=== PATIENT | female | born 1970 | race Caucasian/White ===

== ENCOUNTER 2019-06-04 14:59 | Inpatient (IN) ==
[2019-06-04] MEDS ORDERED: PULMICORT INH ONE (15:25)
[2019-06-04] MEDS ORDERED: DUONEB (A & A) INH ONE ×2 (15:25→18:12)
[2019-06-04] MEDS ORDERED: SOLU-MEDROL IV ONE (15:25)
[2019-06-04 15:51] LABS: BASO# 0.04 X1000 (0.0-0.2); BASO% 0.4 % (0.0-0.8); EOS# 0.25 X1000 (0.0-0.7); EOS% 2.3 % (0.0-10.0); HEMOGLOBIN 16.2 g/dL (12.0-16.0); IMM GRAN# 0.03 X1000 (0.0-0.04); IMM GRAN% 0.3 % (0.0-0.5); LYMPH# 1.88 X1000 (1.2-3.4); MCH 27.6 PG (27-31); MCV 92.2 FL (81-99); MONO# 0.83 X1000 (0.11-0.59); MONO% 7.5 % (1.7-9.3); NEUT# 8.06 X1000 (1.4-6.5); NEUT% 72.5 % (42.2-75.2); PLT 308 X1000 (130-400); RBC 5.86 XMIL (4.2-5.4); RDW 14.9 % (11.5-14.5); WBC 11.09 X1000 (4.8-10.8)
--- NOTE | 2019-06-04 15:51 | Diag Imaging Result Doc PS360 ---
CHEST-1 VIEW - 06/04/2019 INDICATION: sepsis prot COMPARISON: 05/12/2018 FINDINGS: There is some mild linear atelectasis in both midlungs. No substantial infiltrates. Heart size is top normal. No pneumothorax or pleural effusion. IMPRESSION: Bilateral linear atelectasis but no acute disease. Electronically signed by Víctor Diaz 06/04/2019 3:49 PM
--- NOTE | 2019-06-04 15:55 | Diag Imaging Result Doc PS360 ---
TOE(S)-LEFT - 06/04/2019 INDICATION: left 5th digit pain w/o injury TECHNIQUE: Three views COMPARISON: None FINDINGS: Bones are intact and normally aligned. Joint spaces and soft tissues are clear. IMPRESSION: Negative exam. Electronically signed by Víctor Diaz 06/04/2019 3:53 PM
[2019-06-04 16:12] LABS: PTT 31.6 Seconds (22.3-41.8)
[2019-06-04 16:23] LABS: AGAP 8; ALB/GLOB RATIO 1.1; ALBUMIN 4.2 g/dL (3.5-5.0); ALKALINE PHOSPHATASE 98 U/L (32-104); BUN 9 mg/dL (8-22); CALCIUM 9.4 mg/dL (8.8-10.2); CHLORIDE 97 mmol/L (98-107); CK PROFILE 49 U/L (24-173); COSMO 292; CREATININE 0.9 mg/dL (0.5-0.9); ESTIMATED GFR > 60; GLUCOSE 143 mg/dL (70-104); GOT 14 U/L (10-30); GPT 10 U/L (10-36); POTASSIUM 3.7 mmol/L (3.5-5.1); SODIUM 146 mmol/L (136-145); TCO2 41 mmol/L (25-35)
[2019-06-04] MEDS ORDERED: ZITHROMAX 500 MG/NS 500 MG/250 ML IVPB IV ONE (16:30)
--- NOTE | 2019-06-04 16:36 | PROVIDER DOCUMENTATION ---
This chart was entered by Lucero Díaz Scribe, acting as scribe for Kathy Dudley MD. HPI-Respiratory General - General Chief Complaint: SEPSIS ALERT - D Stated Complaint: SOB/COLD SX Time Seen by Provider: 06/04/19 15:15 Source: patient, family (daughter) Allergies/Adverse Reactions: Patient Allergies Allergy/AdvReac Type Severity Reaction Status Date / Time egg Allergy HIVES Verified 06/04/19 17:26 levofloxacin [From Levaquin] Allergy HIVES Verified 06/04/19 17:26 Sulfa (Sulfonamide Allergy HIVES Verified 06/04/19 17:26 Antibiotics) Home Medications: Home Medication List Medication Instructions Recorded Confirmed Last Taken Type LISINOpril [Prinivil] 40 mg PO DAILY #60 tablet 07/26/15 06/04/19 05/11/18 Rx Hydrocodone/Acetaminophen [[place] 1 each PO BID 05/11/18 06/04/19 05/11/18 History 7.5-325 Tablet] Albuterol 2.5MG/Ipratrop 0.5MG 3 ml INH Q4H PRN PRN #60 neb 05/13/18 06/04/19 Unknown Rx [Duoneb (A & A)] Furosemide [Lasix] 40 mg PO PRN PRN 06/04/19 06/04/19 Unknown History Potassium Chloride E.r. [Klor-Con] 40 meq PO PRN PRN 06/04/19 06/04/19 Unknown History - History of Present Illness-Resp Nature of Presenting Problem: pt is a 49 yowf brought to the ED by EMS with daughter at bedside for c/o SOB, cough w/ phlegm and weakness. pt with hx of COPD and o2 dependent of 2L at home but has increased to 3-4 L due to her recent illness. Has positive sick contacts with grandchildren and did not get the flu shot this year. Pt states she puts off going to the doctor or hospital. Her last time for hospitalization for COPD exacerbation was 1 year ago. She continues to smoke, has tried breathing tx at home and was given breathing tx by EMS. She also has c/o of left 5th digit toe pain without injury. She is speaking in short sentences and is on o2 on exam. Quality of Pain: reports: tightness Severity in ED: reports: mild Onset/Duration: reports: 1 week ago Timing: reports: still present, getting worse Exposure: reports: illness exposure (grandchildren have been sick) Cough Quality/Degree: reports: productive cough (yellow phlegm) Current Respiratory Medication Therapy: Initiated see nurses note Modifying Factors: improves with: oxygen. worse with: coughing Associated Symptoms: reports: chest pain/soreness (tightness), cough, hurts to breathe, shortness of breath Similar Symptoms Previously?: Yes Review of Systems - Adult - REVIEW OF SYSTEMS - ADULT Constitutional: reports: see HPI. denies: fever Eyes: reports: no symptoms reported Ears, Nose, Mouth & Throat: reports: no symptoms reported Cardiovascular: reports: see HPI, chest pain Respiratory: reports: see HPI, cough, shortness of breath Gastrointestinal: reports: see HPI. denies: nausea, vomiting Genitourinary: reports: no symptoms reported Musculoskeletal: reports: no symptoms reported Integumentary: reports: no symptoms reported Neurological: reports: no symptoms reported Psychiatric: reports: no symptoms reported Endocrine: reports: no symptoms reported Hematologic/Lymphatic: reports: no symptoms reported Allergic/Immunologic: reports: no symptoms reported All Other Systems: Reviewed and Negative Past History - Adult - PAST MEDICAL HISTORY-ADULT Review of Records: reports: Old Records Reviewed, Medications Reviewed, Social history reviewed & non-contributory. Major Childhood Illnesses: reports: denies history Cardiovascular: reports: CAD, HTN, SC Respiratory: reports: asthma, COPD Gastrointestinal: reports: GERD Obstetrical/Gynecological: reports: denies history Genitourinary: reports: denies history Musculoskeletal: reports: chronic pain Neurological: reports: denies history Psychiatric: reports: depression Endocrine/Immune: reports: denies history Other Conditions: reports: denies history - PRIOR SURGERIES/PROCEDURES Surgical/Procedure History: reports: BTL, other (left ear) - IMMUNIZATION STATUS Childhood Immunizations: See Nurse Assessment Flu Vaccine: See Nurse Assessment - FAMILY HISTORY Family History: reviewed, not pertinent - SOCIAL HISTORY Smoking: cigarettes, less than 1 pack/day Provider spent 3-5 mins advising pt. on dangers of tobacco.: Discussed manners to quit use, and f/u contacts for add'l counseling. Substance Use: denies Living Situation: family (daughter) Physical Exam-General - PHYSICAL EXAM-ADULT Initial Vital Signs Reviewed: Yes (Resp 108, O2 92 ) - CONSTITUTIONAL General Appearance: alert, mild distress, obese - EYES Eyes: PERRL/EOMI, pink conjunctivae - HEAD, EARS, NOSE, MOUTH & THROAT HENMT: moist mucous membranes - NECK Neck: non-tender, full range of motion - RESPIRATORY Respiratory: respiratory distress (mild), decreased breath sounds, wheezing. negative: crackles, rales, rhonchi - CARDIOVASCULAR Cardiovascular: tachycardia, other (trace edema to LE b/l) - GASTROINTESTINAL (ABDOMEN) Abdominal Exam: non tender, soft - MUSCULOSKELETAL Back Exam: no CVA tenderness, no vertebral tenderness Extremity: normal gait, tenderness (right arm), other (left digit abrasion, tender to touch) - SKIN Integumentary: normal color, normal turgor, warm/dry - NEUROLOGIC Neurologic: grossly normal - PSYCHIATRIC Psych/Mental Status: normal mood/affect, normal thought content, normal thought process, oriented x 3 Progress - PLAN OF CARE/RESULTS Progress/Plan/Lab Results: Vital Signs - 8 hr 06/04/19 15:07 06/04/19 15:14 06/04/19 15:41 Temperature 98.5 F Pulse Rate 108 H 105 H 108 H Respiratory Rate 22 23 22 Blood Pressure 167/122 167/122 O2 Sat by Pulse Oximetry 92 L 92 L 92 L 06/04/19 17:34 06/04/19 18:03 06/04/19 18:33 Temperature Pulse Rate 104 H 97 H 102 H Respiratory Rate 23 23 18 Blood Pressure 151/111 131/74 132/100 O2 Sat by Pulse Oximetry 92 L 91 L 94 L 06/04/19 19:03 06/04/19 19:18 06/04/19 19:33 Temperature Pulse Rate 93 H 108 H 98 H Respiratory Rate 23 22 23 Blood Pressure 164/87 167/119 O2 Sat by Pulse Oximetry 91 L 95 06/04/19 20:03 Temperature Pulse Rate 102 H Respiratory Rate 21 Blood Pressure 154/86 O2 Sat by Pulse Oximetry 92 L 06/04/19 15:39 Influenza Screen - Final Nasopharyngeal Laboratory Results - last 24 hr 06/04/19 06/04/19 06/04/19 15:24 15:24 15:24 WBC 11.09 H RBC 5.86 H Hgb 16.2 H Hct 54.0 H MCV 92.2 MCH 27.6 MCHC 30.0 L RDW Std Deviation 14.9 H Plt Count 308 MPV 10.0 Immature Gran % (Auto) 0.3 Neut % (Auto) 72.5 Lymph % (Auto) 17.0 L [place] % (Auto) 7.5 Eos % (Auto) 2.3 Baso % (Auto) 0.4 Immature Gran # (Auto) 0.03 Neut # (Auto) 8.06 H Lymph # (Auto) 1.88 [place] # (Auto) 0.83 H Eos # (Auto) 0.25 Baso # (Auto) 0.04 PT INR PTT (Actin FS) Sodium 146 H Potassium 3.7 Chloride 97 L Carbon Dioxide 41 H Anion Gap 8 BUN 9 Creatinine 0.9 Estimated GFR/1.73 m2 > 60 BUN/Creatinine Ratio 10 Glucose 143 H Calculated Osmolality 292 Calcium 9.4 Total Bilirubin 0.30 AST 14 ALT 10 Alkaline Phosphatase 98 Creatine Kinase 49 Troponin T Total Protein 8.0 Albumin 4.2 Globulin 3.8 Albumin/Globulin Ratio 1.1 Plasma Lactate 1.1 Urine Source Urine Color Urine Turbidity Urine pH Ur Specific [place] Urine Protein Ur Glucose (Stick) Ur Ketones (Stick) Urine Blood Urine Nitrite Urine Bilirubin Urobilinogen Dipstick Urine Leukocytes Urine WBC (Auto) Urine RBC (Auto) U Epithel Cells (Auto) Urine Bacteria (Auto) 06/04/19 06/04/19 06/04/19 15:24 15:24 16:55 WBC RBC Hgb Hct MCV MCH MCHC RDW Std Deviation Plt Count MPV Immature Gran % (Auto) Neut % (Auto) Lymph % (Auto) [place] % (Auto) Eos % (Auto) Baso % (Auto) Immature Gran # (Auto) Neut # (Auto) Lymph # (Auto) [place] # (Auto) Eos # (Auto) Baso # (Auto) PT 13.4 INR 1.01 PTT (Actin FS) 31.6 Sodium Potassium Chloride Carbon Dioxide Anion Gap BUN Creatinine Estimated GFR/1.73 m2 BUN/Creatinine Ratio Glucose Calculated Osmolality Calcium Total Bilirubin AST ALT Alkaline Phosphatase Creatine Kinase Troponin T < 0.010 Total Protein Albumin Globulin Albumin/Globulin Ratio Plasma Lactate Urine Source CLEAN CATCH Urine Color YELLOW Urine Turbidity CLEAR Urine pH 6.0 Ur Specific [place] 1.019 Urine Protein TRACE A Ur Glucose (Stick) NEGATIVE Ur Ketones (Stick) NEGATIVE Urine Blood NEGATIVE Urine Nitrite NEGATIVE Urine Bilirubin NEGATIVE Urobilinogen Dipstick NORMAL Urine Leukocytes NEGATIVE Urine WBC (Auto) <10 Urine RBC (Auto) <10 U Epithel Cells (Auto) <10 Urine Bacteria (Auto) NEGATIVE Orders Category Date Time Status Cardiac Monitoring DIRECTED Care 06/04/19 15:15 Active IV Insertion ORDERED Care 06/04/19 15:15 Completed Notify MD of + Sepsis Screen NOW Care 06/04/19 15:15 Completed Notify Physician As Ordered Care 06/04/19 15:15 Completed Regular Diet Diet 06/04/19 18:56 Active CHEST-1 VIEW [RAD] Stat Exams 06/04/19 15:15 Completed TOE(S)-LEFT [RAD] Stat Exams 06/04/19 15:26 Completed BLOOD CULTURE [BLDCUL] Stat Lab 06/04/19 15:34 Results CBC WITH DIFF [HEME] Stat Lab 06/04/19 15:24 Completed CK PROFILE [SP CHEM] Stat Lab 06/04/19 15:24 Completed COMPREHENSIVE METABOLIC PANEL [CHEM] Stat Lab 06/04/19 15:24 Completed Flu Swab [INFLUENZA SCREEN A/B] Stat Lab 06/04/19 15:39 Completed LACTATE, PLASMA [CHEM] Q3H Lab 06/04/19 15:24 Completed PROTIME WITH INR [COAG] Stat Lab 06/04/19 15:24 Completed PTT [COAG] Stat Lab 06/04/19 15:24 Completed TROPONIN T Stat Lab 06/04/19 15:24 Completed URINALYSIS W/POSS RFLX CULT [URINALYSIS] Stat Lab 06/04/19 16:55 Completed Albuterol 2.5MG/Ipratrop 0.5MG [Duoneb (A & A)] Med 06/04/19 15:25 Discontinued 9 ml INH NOW ONE Albuterol 2.5MG/Ipratrop 0.5MG [Duoneb (A & A)] Med 06/04/19 18:12 Discon tinued 9 ml INH NOW ONE Azithromycin 500 mg/Ns [Zithromax 500 mg/Ns] Med 06/04/19 16:30 Discontinued 500 mg in 250 ml IV NOW Budesonide [Pulmicort] Med 06/04/19 15:25 Discontinued 0.5 mg INH NOW ONE Methylprednisolone Sod Succ [Solu-Medrol] Med 06/04/19 15:25 Discontinued 125 mg IV NOW ONE Aerosol Treatments Routine Oth 06/04/19 15:25 Completed Aerosol Treatments Routine Oth 06/04/19 18:12 Completed Aerosol Treatments Stat Ot 06/04/19 15:25 Completed Aerosol Treatments Stat Ot 06/04/19 18:12 Completed Oxygen Device Stat Ot 06/04/19 15:15 Completed Result Diagrams: 06/04/19 15:24 06/04/19 15:24 - REASSESSMENT Reassessment #1 Time Reassessed: 16:29 Status: other (labs reviewed, flu negative. normal WBC with normal lactate. not currently concerned for sepsis. Will tx for COPD exacerbation and hypoxia.) - EKG 1 Time of EKG reading by physician:: 15:20 EKG Read and Signed by:: Trung Al EKG Interpretation (*Must complete 3 of following elements*): Abnormal Rate: 105 Rhythm: Sinus tachycardia [place]: normal Comments: Left posterior fascicular block - XRAY 1 XRAY Study: other (TOE(S)-LEFT - 06/04/2019 INDICATION: left 5th digit pain w/o injury TECHNIQUE: Three views COMPARISON: None FINDINGS: Bones are intact and normally aligned. Joint spaces and soft tissues are clear. IMPRESSION: Negative exam. Electronically signed by Víctor Diaz 06/04/2019 3:53 PM 06/04/19 1553 Interpreting Physician: Víctor Diaz MD Dictated Date/Time: 06/04/19 1552 cc: Kathy Dudley MD; Kayden Wilkerson MD) 2 XRAY Study: Chest Impression: See EMR Report (CHEST-1 VIEW - 06/04/2019 INDICATION: sepsis prot COMPARISON: 05/12/2018 FINDINGS: There is some mild linear atelectasis in both midlungs. No substantial infiltrates. Heart size is top normal. No pneumothorax or pleural effusion. IMPRESSION: Bilateral linear atelectasis but no acute disease. Electronically signed by Víctor Diaz 06/04/2019 3:49 PM 06/04/19 1549 Interpreting Physician: Víctor Diaz MD Dictated Date/Time: 06/04/19 1548 cc: Kathy Dudley MD; Kayden Wilkerson MD) Departure - Departure Date of Disposition Decision: 06/04/19 Time of Disposition Decision: 16:35 DIAGNOSIS: COPD exacerbation, Hypoxia Disposition: ADMITTED INPATIENT 09 Certified Medical Emergency: Emergent Condition: Stable Referrals and Follow-Ups: Kayden Wilkerson MD [Primary Care Provider] - - Critical Care Note This patient required my direct & personal management of CC.: No Attestation - Physician/ ELVIN Attestation Patient care was provided by Advanced Practice Provider:: No The physician spent face to face time with patient:: Yes Advanced Practice Provider documentation review:: Supervising physician onsite and consulted in the evaluation and care of this patient. The physician did have a face to face encounter with the patient. This chart was documented by the indicated scribe, (Lucero Díaz, [place]) and accurately reflects the services I performed and decisions made by me, Kathy Steve MD, as attested by the provider's signature.
[2019-06-04 16:53] LABS: INR 1.01; PROTIME 13.4 Seconds (11.0-16.0)
[2019-06-04 17:24] LABS: URINE SOURCE CLEAN CATCH
[2019-06-04 17:30] LABS: BILIRUBIN URINE NEGATIVE (NEGATIVE); BLOOD URINE NEGATIVE (NEGATIVE); COLOR YELLOW; GLUCOSE URINE NEGATIVE (NEGATIVE); KETONE URINE NEGATIVE (NEGATIVE); LEUKOCYTES URINE NEGATIVE (NEGATIVE); NITRITE URINE NEGATIVE (NEGATIVE); PROTEIN URINE TRACE mg/dL (NEGATIVE); SP GRAVITY URINE 1.019; TURBIDITY URINE CLEAR (CLEAR); UROBILINOGEN URINE NORMAL (NORMAL)
[2019-06-04 17:32] LABS: UR EPITHELIAL CELLS <10 /HPF (<10); URINE BACTERIA NEGATIVE /HPF; URINE RBC <10 /HPF (<10); URINE WBC <10 /HPF (<10)
[2019-06-04] MEDS ORDERED: DUONEB (A & A) INH PRN (21:48)
[2019-06-04] MEDS: DUONEB (A & A) INH SCH (23:38)
[2019-06-04] MEDS: SOLU-MEDROL IV SCH (23:42)
[2019-06-04] MEDS: ROCEPHIN 1 GM in NS 50 ML IV SCH (23:43)
[2019-06-05] MEDS: NORCO-7.5 PO SCH ×3 (01:07→21:17)
--- NOTE | 2019-06-05 01:23 | HISTORY AND PHYSICAL ---
CHIEF COMPLAINT: Shortness of breath which has been ongoing for about 1 week. HISTORY OF PRESENT ILLNESS: Ms. Yola Stauffer is a 49-year-old female who has a history of COPD, congestive heart failure, tobacco use history, anxiety disorder. She presents to the hospital because of shortness of breath which has been ongoing for 1 week. She also describes a cough which is nonproductive. In addition, she has wheezing. She smokes cigarettes and she has been smoking since the age of 2. Currently, she smokes less than a pack a day. At time of her presentation, x-ray of her chest showed bilateral linear atelectasis with no acute disease. In the ER, she did receive DuoNeb treatments, azithromycin 500 mg, methylprednisolone 125 mg and also budesonide. PAST MEDICAL HISTORY: Hypertension, COPD, congestive heart failure, anxiety disorder, chronic back pain. PAST SURGICAL HISTORY: She has had bilateral tubal ligation as well as left ear surgery. FAMILY HISTORY: Positive for heart disease. SOCIAL HISTORY: She smokes cigarettes. She has been smoking since the age of 42 years old. Currently, she smokes less than a pack-a-day. No alcohol or drug use. ALLERGIES: She is allergic to Levaquin, sulfa and also eggs. MEDICATIONS: Include the followin. DuoNeb q.4 hours p.r.n. 2. Lasix 40 mg p.o. p.r.n. 3. Potassium chloride 40 mEq p.o. p.r.n. 4. [place] 7.5/325 as directed. 5. Lisinopril 20 g p.o. daily. REVIEW OF SYSTEMS: Constitutional: She has fever. 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 Eyes: No blurred vision. ENT: Impaired hearing left ear. Cardiovascular: No chest pain. Gastrointestinal: No nausea or vomiting. She has constipation. No abdominal pains. Genitourinary: No dysuria. Psychiatry: She has anxiety. Endocrinology: No thyroid disease or diabetes. Dermatology: No skin lesions. Musculoskeletal: She has joint pains. Hematology: No bleeding problems. Allergy/immunology: No symptoms suggestive of allergic rhinitis. PHYSICAL EXAMINATION: VITAL SIGNS: Temperature is 98.5 degrees, pulse is 107, respiratory rate is 21, blood pressure is 144/74, oxygen saturation is 93%. HEENT: Patient is atraumatic, normocephalic. She is anicteric. Pupils are poorly reactive to light. No oral lesions noted. NECK: No lymphadenopathy or thyromegaly. CARDIOVASCULAR: S1, S2. RESPIRATORY: No rales or rhonchi noted. ABDOMEN: Soft, nontender. No masses felt. EXTREMITIES: No evidence of significant edema. CENTRAL NERVOUS SYSTEM: No obvious focal deficit noted. LABORATORY DATA: WBC is 11.09, hematocrit is 54, with a platelet count of 308,000. Sodium is 146, potassium 3.7, chloride 97, bicarb is 21, BUN is 9, creatinine 0.9. Glucose is 143. X-ray of the chest shows bilateral linear atelectasis with no acute disease. ASSESSMENT AND PLAN: 1. Chronic obstructive pulmonary disease exacerbation. We will maintain patient on nebulized bronchodilators, along with steroids and also antibiotic. Check sputum for culture and maintain patient on oxygen supplementation. 2. Congestive heart failure. Stable. Monitor intakes and outputs, as well as daily weights. Use diuretics as needed. 3. Hypertension. Continue current antihypertensive regimen. 4. Tobacco use history. Recommend nicotine patch. 5. Anxiety disorder. Recommend antianxiety agent as needed. 6. Erythrocytosis. Most likely secondary to chronic hypoxia. 7. Leukocytosis. Check blood cultures as well as a urine cultures. 8. Hyperglycemia. We will check a hemoglobin A1c and monitor blood sugar levels. 9. Deep vein thrombosis prophylaxis. Lovenox. 10. Gastrointestinal prophylaxis. Proton pump inhibitor. cc: Chandan Gauthier MD
[2019-06-05] MEDS: DUONEB (A & A) INH SCH ×6 (03:25→21:52)
[2019-06-05 08:11] LABS: HEMOGLOBIN A1C 5.5 % (4.8-6.0)
--- NOTE | 2019-06-05 08:18 | PROGRESS NOTE ---
DATE: 06/05/2019 SUBJECTIVE: The patient is awake. She complains of right-sided chest pain. OBJECTIVE: Vital signs: Temperature is 97.5 degrees, pulse 97, respiratory rate is 18, blood pressure is 143/88, oxygen saturation 93%. HEENT: Atraumatic, normocephalic. Cardiovascular: S1, S2. Respiratory: Has evidence of good entry bilaterally. Abdomen: Soft, nontender. No masses felt. Extremities: No evidence of edema. Central nervous system: No obvious focal deficit noted. LABORATORY DATA: Blood sugar is 123. ASSESSMENT AND PLAN: 1. Chronic obstructive pulmonary disease exacerbation. Continue nebulized bronchodilators, steroids as well as antibiotics. Continue supplemental oxygen. 2. Congestive heart failure. Stable. Monitor intakes and outputs, as well as daily weights. Use diuretics as needed. 3. Hypertension. Continue current antihypertensive regimen. 4. Tobacco use history. Nicotine patch recommended. 5. Deep vein thrombosis prophylaxis. Lovenox. 6. Gastrointestinal prophylaxis. Proton pump inhibitor. cc: Chandan Gauthier MD
[2019-06-05] MEDS: SOLU-MEDROL IV SCH ×3 (08:54→22:59)
[2019-06-05] MEDS: LOVENOX SUBQ SCH (08:54)
[2019-06-05] MEDS: PRINIVIL PO SCH (08:54)
[2019-06-05] MEDS ORDERED: MYCOSTATIN POWDER TOP SCH (09:00)
--- NOTE | 2019-06-05 09:31 | Diag Imaging Result Doc PS360 ---
CT ANGIOGRM PULMONARY ARTERIES - 06/05/2019 INDICATION: r/o pte TECHNIQUE: Axial CT images were obtained after administering intravenous contrast. Coronal MIP images were generated. COMPARISON: 05/11/2018 FINDINGS: There is no pulmonary embolism. Heart and great vessels are normal. No adenopathy. Upper abdominal images are normal. Stable calcified granulomas. There is some increasing atelectasis in the lingula. Stable chronic atelectasis or scarring in the right upper lobe. There are moderate degenerative changes of the spine. No acute or suspicious bony lesion. IMPRESSION: Negative for pulmonary embolism. Increasing linear atelectasis in the lingula, nonspecific. This exam was performed using automated exposure control, adjustment of mA or kV according to patient size, and/or use of iterative reconstruction technique Electronically signed by Víctor Diaz 06/05/2019 9:28 AM
[2019-06-05] MEDS: LOTRIMIN 1% CREAM TOP SCH (21:17)
[2019-06-05] MEDS: MYCOSTATIN POWDER TOP SCH (21:17)
[2019-06-05] MEDS: ROCEPHIN 1 GM in NS 50 ML IV SCH (23:00)
[2019-06-06] MEDS: DUONEB (A & A) INH SCH ×3 (02:56→11:17)
--- NOTE | 2019-06-06 07:41 | EKG Report ---
Test Performed on : 06/04/2019 3:11:14 PM Test Reason : SOB Blood Pressure : / mmHG Vent. Rate : 105 BPM Atrial Rate : 105 BPM P-R Int : 184 ms QRS Dur : 086 ms QT Int : 350 ms P-R-T Axes : 055 115 075 degrees QTc Int : 462 ms Sinus tachycardia. Left posterior fascicular block Abnormal ECG When compared with ECG of 11-MAY-2018 10:50, No significant change was found Unconfirmed Result
[2019-06-06 08:02] VITALS: BP 133/88
[2019-06-06] MEDS: SOLU-MEDROL IV SCH (08:20)
[2019-06-06] MEDS: LOVENOX SUBQ SCH (08:21)
[2019-06-06] MEDS: PRINIVIL PO SCH (08:21)
[2019-06-06] MEDS: NORCO-7.5 PO SCH (08:21)
[2019-06-06] MEDS: LOTRIMIN 1% CREAM TOP SCH (08:22)
[2019-06-06] MEDS: MYCOSTATIN POWDER TOP SCH (08:22)
[2019-06-06 09:55] LABS: BASO# 0.01 X1000 (0.0-0.2); BASO% 0.1 % (0.0-0.8); HEMATOCRIT 46.7 % (37.0-47.0); HEMOGLOBIN 14.4 g/dL (12.0-16.0); IMM GRAN# 0.04 X1000 (0.0-0.04); IMM GRAN% 0.3 % (0.0-0.5); LYMPH# 0.72 X1000 (1.2-3.4); LYMPH% 4.9 % (20.5-51.1); MCHC 30.8 g/dL (33-37); MCV 90.7 FL (81-99); MONO# 0.42 X1000 (0.11-0.59); MONO% 2.9 % (1.7-9.3); NEUT# 13.38 X1000 (1.4-6.5); NEUT% 91.8 % (42.2-75.2); PLT 321 X1000 (130-400); RBC 5.15 XMIL (4.2-5.4); WBC 14.57 X1000 (4.8-10.8)
[2019-06-06 10:19] LABS: AGAP 10; BUN 16 mg/dL (8-22); CALCIUM 9.2 mg/dL (8.8-10.2); CHLORIDE 93 mmol/L (98-107); COSMO 288; CREATININE 0.7 mg/dL (0.5-0.9); ESTIMATED GFR > 60; GLUCOSE 198 mg/dL (70-104); POTASSIUM 4.1 mmol/L (3.5-5.1); SODIUM 141 mmol/L (136-145); TCO2 38 mmol/L (25-35)
[2019-06-06 10:32] LABS: LYMPHS 2 % (21-51); SEGS 98 % (42-75)
--- NOTE | 2019-06-07 18:07 | DISCHARGE SUMMARY ---
ADMISSION DATE: 06/04/2019 DISCHARGE DATE: 06/06/2019 ADMISSION DIAGNOSES: 1. Chronic obstructive pulmonary disease exacerbation. 2. Congestive heart failure, stable. 3. Hypertension. 4. Tobacco abuse history. 5. Anxiety disorder. 6. Erythrocytosis. 7. Leukocytosis. 8. Hyperglycemia, normal A1c. DISCHARGE DIAGNOSES: 1. Chronic obstructive pulmonary disease exacerbation. 2. Congestive heart failure, stable. 3. Hypertension. 4. Tobacco abuse. CONSULTATIONS: None. SURGERIES AND PROCEDURES: None. HOSPITAL COURSE: Ms. Yola Stauffer is a 49-year-old female with a history of COPD, congestive heart failure, tobacco abuse, anxiety disorder, who presented to the emergency department with shortness of breath that had been ongoing for at least a week. Cough was nonproductive. She had wheezing. She still continues to smoke. She comes in with these complaints. She was started on erythromycin, prednisone and nebulizers. She improved over the next 48 hours and was deemed good for discharge home. DISCHARGE VITAL SIGNS: Temperature 98.1 degrees, heart rate 79, respiratory rate 18, blood pressure 133/88, and O2 saturation 95% on 3 L. DISCHARGE LAB DATA: White blood cells 14,000, hemoglobin 14, hematocrit 46, platelet count 321,000. Sodium 141, potassium 4.1, BUN 16, creatinine 0.7, glucose 198, with an A1c of 5.5, calcium 9.2. Cardiac enzymes negative. Microbiology, urine culture no growth. Influenza negative. Blood cultures no growth. PERTINENT IMAGING: Chest x-ray, bilateral atelectasis. Toe x-ray of the left 5th digit, left foot, negative exam. Pulmonary arteriogram negative for PE. Increased linear atelectasis in the lingula which was nonspecific. DISCHARGE MEDICATIONS: 1. Potassium chloride 40 mEq p.r.n. with Lasix. 2. Lasix 40 mg p.o. p.r.n. 3. [place] 7.5 one tablet p.o. twice daily p.r.n. 4. DuoNeb every 4 hours p.r.n. 5. Medrol Dosepak. 6. Lisinopril 40 mg p.o. daily. 7. Symbicort 160/4.5 two puffs inhaled twice daily. DISCHARGE ACTIVITY: As tolerated. DISCHARGE DIET: Heart healthy. DISCHARGE PHYSICIAN FOLLOWUP: Dr. Kayden Wilkerson. DISCHARGE INSTRUCTIONS: If her condition changes, contact physician and/or return to the emergency department. Changes may include, but not limited to, shortness of breath, increased fatigue, excessive bleeding, unexplained weight loss or gain, unmanageable pain, signs or symptoms of infection. DISCHARGE DISPOSITION: Home. Dictated by IAM Funes for Jonel Mcnair MD cc: IAM Funes Agree with the above. the following is my own face to face assessment. patient with copd exacerbation. no further wheezing. satting well on room air. stable for discharge home on short steroid taper and her home meds. MTDD
== END 2019-06-06 15:17 | disposition home or self-care (01) ==
LOC: SUPCPDRO → ED 14:59 → SUATTDRO 21:59 → 3N 21:59
PROVIDERS: ATTEND Internal Medicine